=== PATIENT | female | born 1935 | race Caucasian/White ===

== ENCOUNTER 2021-05-23 10:24 | Inpatient (IN) | payer OTHER, SELFPAY ==
[~2021-05-23] VITALS: Ht 152.4 cm; Wt 62.1 kg
[2021-05-23] VITALS (8 sets, daily range): BP systolic 106–187
[2021-05-23] MEDS ORDERED: LORA-258 PO (10:41)
[2021-05-23 11:46] LABS: BASOPHILS # (AUTO) 0.1 K/uL (0.0-0.2); BASOPHILS % (AUTO) 0.9 % (0.0-2.0); EOSINOPHILS % (AUTO) 13.6 % (0.0-4.0); HEMATOCRIT 37.3 % (36-48); HEMOGLOBIN 12.4 g/dL (12.0-16.0); LYMPHOCYTES # (AUTO) 1.4 K/uL (1.0-5.5); LYMPHOCYTES % (AUTO) 20.7 % (20.5-51.5); MEAN CORPUSCULAR HEMOGLOBIN 31 pg (27-31); MEAN CORPUSCULAR HGB CONC 33 % (32-36); MEAN CORPUSCULAR VOLUME 93 fL (79.0-98.0); MONOCYTES # (AUTO) 0.5 K/uL (0.0-1.0); MONOCYTES % (AUTO) 6.5 % (1.7-9.3); NEUTROPHILS # (AUTO) 4.1 K/uL (1.8-7.7); NEUTROPHILS % (AUTO) 58.3 % (40.0-70.0); PLATELET COUNT (AUTO) 214 K/uL (130-430); RED BLOOD CELL COUNT(AUTO) 4.04 MIL/uL (4.2-6.2); RED CELL DISTRIBUTION WIDTH 15.7 % (9.0-15.0)
[2021-05-23 12:11] LABS: ANION GAP 8 (5-15); CALCIUM 9.3 mg/dL (8.4-11.0); CHLORIDE 106 mmol/L (98-107); CREATININE 1.26 mg/dL (0.55-1.30); GLUCOSE 91 mg/dL (70-99); POTASSIUM 4.6 mmol/L (3.5-5.1); SODIUM SERUM 141 mmol/L (136-145); UREA NITROGEN, BLOOD 41 mg/dL (8-21)
[2021-05-23 12:17] LABS: ALANINE AMINOTRANSFERASE 43 U/L (12-78); ALBUMIN 3.5 g/dL (3.4-4.8); ASPARTATE AMINOTRANSFERASE 42 U/L (10-37); TOTAL BILIRUBIN 0.8 mg/dL (0.0-1.0)
[2021-05-23] MEDS ORDERED: LORazepam 2 MG/ML VIAL IVP ONE (13:15)
[2021-05-23] MEDS ORDERED: LORazepam 2 MG/ML VIAL IVP PRN (14:15)
[2021-05-23] MEDS ORDERED: ONDANSETRON HCL 4 MG/2 ML VIAL IVP PRN (22:15)
[2021-05-24] VITALS (15 sets, daily range): BP systolic 110–193
[2021-05-24] MEDS: D5/0.45 NS 1,000 ML IV SCH ×3 (00:18→20:06)
[2021-05-24] MEDS ORDERED: LORazepam 2 MG/ML VIAL ONE ×2 (00:47→11:01)
[2021-05-24] MEDS: LORazepam 2 MG/ML VIAL IVP PRN ×2 (00:50→11:02)
[2021-05-24 07:02] LABS: BASOPHILS # (AUTO) 0.1 K/uL (0.0-0.2); BASOPHILS % (AUTO) 1.1 % (0.0-2.0); EOSINOPHILS # (AUTO) 1.1 K/uL (0.0-0.4); EOSINOPHILS % (AUTO) 17.5 % (0.0-4.0); HEMATOCRIT 31.5 % (36-48); HEMOGLOBIN 10.6 g/dL (12.0-16.0); MEAN CORPUSCULAR HEMOGLOBIN 31 pg (27-31); MEAN CORPUSCULAR HGB CONC 34 % (32-36); MEAN CORPUSCULAR VOLUME 92 fL (79.0-98.0); MONOCYTES # (AUTO) 0.5 K/uL (0.0-1.0); MONOCYTES % (AUTO) 8.1 % (1.7-9.3); NEUTROPHILS # (AUTO) 3.7 K/uL (1.8-7.7); NEUTROPHILS % (AUTO) 58.3 % (40.0-70.0); PLATELET COUNT (AUTO) 178 K/uL (130-430); RED BLOOD CELL COUNT(AUTO) 3.43 MIL/uL (4.2-6.2); RED CELL DISTRIBUTION WIDTH 15.2 % (9.0-15.0); WHITE BLOOD COUNT (AUTO) 6.3 K/uL (4.8-10.8)
[2021-05-24 08:26] LABS: ALANINE AMINOTRANSFERASE 30 U/L (12-78); ALBUMIN 2.7 g/dL (3.4-4.8); ANION GAP 2 (5-15); ASPARTATE AMINOTRANSFERASE 27 U/L (10-37); CALCIUM 8.8 mg/dL (8.4-11.0); CHLORIDE 111 mmol/L (98-107); CREATININE 1.12 mg/dL (0.55-1.30); GLUCOSE 102 mg/dL (70-99); POTASSIUM 4.3 mmol/L (3.5-5.1); SODIUM SERUM 138 mmol/L (136-145); TOTAL BILIRUBIN 0.9 mg/dL (0.0-1.0); UREA NITROGEN, BLOOD 33 mg/dL (8-21)
[2021-05-25] VITALS: BP_SYST 152
[2021-05-25] MEDS: D5/0.45 NS 1,000 ML IV SCH (04:15)
[2021-05-25 07:14] LABS: BASOPHILS # (AUTO) 0.1 K/uL (0.0-0.2); EOSINOPHILS # (AUTO) 1.1 K/uL (0.0-0.4); EOSINOPHILS % (AUTO) 18.3 % (0.0-4.0); HEMOGLOBIN 11.9 g/dL (12.0-16.0); LYMPHOCYTES # (AUTO) 1.3 K/uL (1.0-5.5); LYMPHOCYTES % (AUTO) 21.5 % (20.5-51.5); MEAN CORPUSCULAR HEMOGLOBIN 31 pg (27-31); MEAN CORPUSCULAR HGB CONC 33 % (32-36); MEAN CORPUSCULAR VOLUME 93 fL (79.0-98.0); MONOCYTES # (AUTO) 0.5 K/uL (0.0-1.0); NEUTROPHILS # (AUTO) 3.1 K/uL (1.8-7.7); NEUTROPHILS % (AUTO) 51.2 % (40.0-70.0); PLATELET COUNT (AUTO) 173 K/uL (130-430); RED BLOOD CELL COUNT(AUTO) 3.87 MIL/uL (4.2-6.2); RED CELL DISTRIBUTION WIDTH 15.7 % (9.0-15.0)
[2021-05-25 08:00] VITALS: BP_SYST 155
[2021-05-25 08:16] LABS: ANION GAP 11 (5-15); CALCIUM 9.2 mg/dL (8.4-11.0); CHLORIDE 108 mmol/L (98-107); CREATININE 0.96 mg/dL (0.55-1.30); GLUCOSE 89 mg/dL (70-99); POTASSIUM 3.9 mmol/L (3.5-5.1); SODIUM SERUM 141 mmol/L (136-145); UREA NITROGEN, BLOOD 23 mg/dL (8-21)
[2021-05-25] MEDS: LORazepam 2 MG/ML VIAL IVP PRN (10:45)
[2021-05-25 10:48] VITALS: BP_SYST 155
[2021-05-25] MEDS ORDERED: LORazepam 2 MG/ML VIAL ONE (10:50)
[2021-05-25 11:30] VITALS: BP_SYST 157
== END 2021-05-25 12:01 | disposition hospice, home (50) | DRG 308 ==
LOC: SED 10:24 → SIC 14:10 → SMU 05-24 12:08
PROVIDERS: ADMIT Preventive Medicine Preventive Medicine/Occupational Environmental Medicine; ATTEND Preventive Medicine Preventive Medicine/Occupational Environmental Medicine
DX: I44.2 Atrioventricular block, complete (principal); G93.41 Metabolic encephalopathy; D64.9 Anemia, unspecified; Z66 Do not resuscitate; F03.90 Unspecified dementia, unspecified severity, without behavioral disturbance, psychotic disturbance, mood disturbance, and anxiety; K59.00 Constipation, unspecified; F41.9 Anxiety disorder, unspecified; R79.89 Other specified abnormal findings of blood chemistry; R74.01 Elevation of levels of liver transaminase levels; Z20.822 Contact with and (suspected) exposure to COVID-19; I49.8 Other specified cardiac arrhythmias
CPT/HCPCS: 36415; 71045; 80048; 80053; 83735; 83880; 84100; 84484; 85025; 85610-TC; 85730-TC; 87081; 93005; 93306; 96374; 99285; J2060